=== PATIENT | female | born 1990 | race Caucasian/White ===

== ENCOUNTER 2020-06-14 10:21 | Inpatient (IN) ==
[2020-05-12 15:22] LABS: Appearance Urine Clear (Clear); Bilirubin Urine Negative (Negative); Blood Urine Negative (Negative); Color Urine Yellow; Glucose Urine UA Negative (Negative); Ketones Urine Negative (Negative); Leukocyte Esterase Urine Negative (Negative); Nitrite Urine Negative (Negative); Protein Urine Negative (Negative); Urobilinogen Urine Negative (Negative)
[2020-05-12 15:22] LABS: Basophils # (auto) 0.03 K/uL (0-0.2); Basophils % (auto) 0.3 %; Eosinophils # (auto) 0.12 K/uL (0-0.5); Eosinophils % (auto) 1.2 %; Hematocrit (blood only) 45.1 % (37-47); Hemoglobin 14.5 g/dL (12.0-16.0); Immature Granulocytes # (auto) 0.02 K/uL (0.00-0.02); Immature Granulocytes % (auto) 0.2 %; Lymphocytes # (auto) 3.19 K/uL (1.2-3.4); Lymphocytes % (auto) 31.8 %; Mean Corpuscular Hemoglobin 30.1 pg (25-34); Mean Corpuscular Hgb Conc 32.2 g/dL (32-36); Mean Corpuscular Volume 93.8 fL (80-100); Mean Platelet Volume 12.9 fL (7.4-10.4); Neutrophils # (auto) 5.98 K/uL (1.4-6.5); Neutrophils % (auto) 59.5 %; Platelet Count 244 K/uL (130-400); RDW Coefficient of Variation 13.6 % (11.5-14.5); RDW Standard Deviation 46.9 fL (36.4-46.3); Red Blood Count 4.81 M/uL (4.2-5.4); White Blood Count 10.04 K/uL (4.8-10.8)
[2020-05-12 15:30] LABS: BUN Creatinine Ratio 12.5 (10-20); Calcium 9.3 mg/dl (8.5-10.1); Creatinine Clr Calc Pharmacy 95.9 ml/min; Est GFR (African American) 98.1; Est GFR (Non-African American) 84.7; Potassium 3.9 mmol/L (3.5-5.1)
[2020-05-12 15:33] LABS: Partial Thromboplastin Time 29.1 Seconds (21.0-31.0); Prothrombin Time 10.2 Seconds (9.0-12.0)
--- NOTE | 2020-06-10 12:41 | Anesthesiology Consultation ---
Date of Service June 10, 2020 Assessment & Plan (1) Encounter for pre-operative examination: Chart Review Chart Review: Acceptable Risk for Surgery (pending updated travel assessment) and Patient NOT seen in Pre Admission Testing History Surgery Operation Date: 06/14/20 13:25 Proposed Procedures p L5-S1 Decompression and Fusion, Spinal Cord Monitoring - Arnel Espinosa, Height/Weight Height: 5 ft 4 in Weight: 86 kg Allergies Allergy/AdvReac Type Severity Reaction Status Date / Time cefaclor [From Ceclor] Allergy Unknown diffuse Verified 06/10/20 12:36 redness Medications Home Medications Medication Instructions Recorded Confirmed Last Taken hydrochlorothiazide 25 mg PO QAM 05/11/20 06/10/20 Unknown ibuprofen [Motrin IB] 600 mg PO Q6H PRN 05/11/20 06/10/20 Unknown multivitamin 1 tab PO QAM 05/11/20 06/10/20 Unknown polyethylene glycol 3350 [Miralax] 17 g PO DAILY PRN 05/11/20 06/10/20 Unknown Past Medical History Medical History Cardiac murmur heard as child, not heard as adult per patient Gastroparesis GERD (gastroesophageal reflux disease) Hypertension Migraine Neurogenic bladder disorder r/t back herniation during (10/2019)- has bladder stimulator (right lower back), has remote Viral hepatitis Dx'ed 2006- initially had mono and influenza- later dx'ed with viral hepatitis- LFTs elevated in the past- currently condition stable Past Family History Family History Grandfather Pancreatic cancer Past Surgical History Surgical History (Updated 06/10/20 @ 12:41 by Alicja Buchanan) H/O laparoscopy x4 (endometriosis) H/O rhinoplasty History of adenoidectomy History of anesthesia reaction low BP, low O2 sats, PONV, post-op panic attacks History of appendectomy History of bladder surgery multiple History of cholecystectomy History of esophagogastroduodenoscopy (EGD) History of hysterectomy History of tonsillectomy History of tooth extraction WTE Social History Smoking Status: Never smoker Hx Alcohol Use: Yes Alcohol type: beer and wine alcohol intake frequency: holidays/special occasions only Hx Substance Use: No Testing Laboratory Results 6/25/20 WBC 10.04 H/H 14.5/45.1 PLATELETS 244 SODIUM 139 POTASSIUM 3.9 CHLORIDE 107 CO2 27 BUN 11 CREATININE 0.91 GLUCOSE 95 PT 10.2 PTT 29.1 INR 1.0 UA negative TYPE AND SCREEN AB+ Ab- Electrocardiogram Date: 05/12/20 + NSR @ (93) Chest X-Ray Date: 05/12/20 + NAD There is a suspected calcified granuloma within the retrosternal chest on the lateral projection.
[~2020-06-14 10:21] MED LIST: ACETAMINOPHEN 500 MG TAB PO SCH; CEFAZOLIN 2000MG 2,000 MG/15 ML SYR IV SCH; CeleBREX 200 MG CAP PO SCH; GABAPENTIN 900 MG DOSE PO SCH; LR 15ML/HR IV SCH
[2020-06-14] MEDS ORDERED: fentaNYL citrate 100 MCG/2 ML VIAL ONE (11:41)
[2020-06-14] MEDS ORDERED: DEXAMETHASONE SOD INJ 4 MG/ML VIAL ONE ×2 (11:41)
[2020-06-14] MEDS ORDERED: ROCURONIUM BROMIDE 10 MG/ML 5 ML VIAL IV ONE ×6 (11:41→14:17)
[2020-06-14] MEDS ORDERED: PROPOFOL IV EMULSION 10 MG/ML 20 ML VIAL IV ONE (11:41)
[2020-06-14] MEDS ORDERED: LIDOCAINE HCL 2% 2 ML VIAL/AMP(20MG/ML) INFIL ONE (11:41)
[2020-06-14] MEDS ORDERED: MIDAZOLAM HCL 1 MG/ML 2ML VIAL ONE (11:41)
[2020-06-14] MEDS ORDERED: ONDANSETRON INJ 2 MG/ML 2 ML VIAL ONE (11:41)
--- NOTE | 2020-06-14 13:01 | History & Physical Bridge Note ---
Date of Service June 14, 2020 History & Physical Bridge Note I have examined the patient, reviewed the History & Physical and in the interval since the performance of the History & Physical I have noted the following changes of clinical significance: no changes noted
--- NOTE | 2020-06-14 13:02 | History & Physical Report ---
Date of Service June 14, 2020 Assessment & Plan (1) Neurogenic claudication due to lumbar spinal stenosis: L5-S1 decompression fusion Present on Admission?: Yes History of Present Illness Chief Complaint: Back and bilateral leg pain Primary Care Provider: ALBERT Schaefer This is a 29-year-old female who presents with chronic persistent back and bilateral leg pain. Failing since course of nonoperative care is here for surgical intervention. Allergies Allergy/AdvReac Type Severity Reaction Status Date / Time cefaclor [From Ceclor] Allergy Unknown diffuse Verified 06/14/20 10:57 redness Home Medications Home Medications Medication Instructions Recorded Confirmed Type hydrochlorothiazide 25 mg PO QAM 05/11/20 06/14/20 History ibuprofen [Motrin IB] 600 mg PO Q6H PRN 05/11/20 06/14/20 History multivitamin 1 tab PO QAM 05/11/20 06/14/20 History polyethylene glycol 3350 [Miralax] 17 g PO DAILY PRN 05/11/20 06/14/20 History Past Med/Surg History Family History Grandfather Pancreatic cancer Social History Smoking Status: Never smoker Second Hand Exposure: No; Do You Dip or Chew Tobacco: No; Tobacco Cessation Education Requested by Patient: No Hx Alcohol Use: Yes Alcohol type: beer and wine Hx Substance Use: No Preferred Language: Persian Communication Ability: Effective Wildlife Policy Professional Required: No Beliefs That Will Affect Care: None Current Living Situation: Family Other Information That Helps Us Care for You: No Feels Safe at Home: Yes Safety Concerns: Feels Safe At This Time Physical Exam Physical Exam: Patient is alert and oriented neurologically intact. Heart regular rate and rhythm. Lungs clear to auscultation. Results & Data Vital Signs (Past 12 Hours) Vital Signs Temp Pulse Resp BP Pulse Ox 06/14/20 11:02 36.8 C 84 18 130/93 97
[2020-06-14] MEDS ORDERED: DEXAMETHASONE SOD INJ 4 MG/ML VIAL IV PRN (13:22)
[2020-06-14] MEDS ORDERED: ONDANSETRON INJ 2 MG/ML 2 ML VIAL IV PRN ×2 (13:22→16:41)
[2020-06-14] MEDS ORDERED: METOCLOPRAMIDE HCL INJ 5 MG/ML 2 ML VIAL IV PRN ×2 (13:22→16:41)
[2020-06-14] MEDS ORDERED: HYDROmorphone INJ 2 MG/ML SYR/VIAL IV PRN (13:22)
[2020-06-14] MEDS ORDERED: PROMETHAZINE HCL 12.5 MG in SODIUM CHLORIDE 0.9% 50 ML IV PRN ×2 (13:22→16:41)
[2020-06-14] MEDS ORDERED: ATROPINE SULFATE 0.1 MG/ML 10ML SYR IV PRN (13:22)
[2020-06-14] MEDS ORDERED: ePHEDrine sulfate 50 MG/ML AMP IV PRN (13:22)
[2020-06-14] MEDS ORDERED: fentaNYL citrate 100 MCG/2 ML VIAL IV PRN (13:22)
[2020-06-14] MEDS ORDERED: BUPIVACAINE 0.5 % 5 MG/1 ML MPF 30ML VIAL ONE (13:27)
[2020-06-14] MEDS ORDERED: EPINEPHrine INJ 1 MG/ML AMP ONE (13:27)
[2020-06-14] MEDS ORDERED: BACITRACIN INJ 50,000 UNIT VIAL ONE (13:27)
[2020-06-14] MEDS ORDERED: HYDROmorphone INJ 2 MG/ML SYR/VIAL ONE (14:31)
[2020-06-14] MEDS ORDERED: FLOSEAL HEMOSTATIC MATRIX 10ML TOP ONE (15:06)
--- NOTE | 2020-06-14 15:09 | Operative Report ---
Post Operative Report Pre & Post Diagnosis Operation Date: 06/14/20 12:45 Pre-Op Diagnosis: Degenerative disc disease L5-S1 with neurogenic claudication Post-Op Diagnosis: Same I identified the patient and participated in the time-out.: Yes Procedure Operation Date: 06/14/20 12:45 Actual Procedures Lumbar decompression with bilateral medial facetectomies and foraminotomies L5- S1. #2 posterior spinal fusion L5-S1. #3 placement posterior instrumentation L5-S1 per #4 interbody fusion L5-S1. #5 placement of titanium 12 x 22 mm cage L5-S1 per #6 placement locally harvested morselized autograft in the posterior lateral gutters. #7 placement infuse collagen sponge, master graft in the posterior lateral gutters and ostial amp interbody space. Surgeon Arnel Espinosa, Boiler Reliner Emmanuelle Lewis Estimated Blood Loss 100 Findings See Below The patient is 5 foot 4 inches tall weighing over 85 kg with a BMI in excess of 32. Patient's body habitus did add significant technical difficulty requiring our deepest retractors and longus instruments in order to perform her procedure. This added at least 25% increase to the operative time. Specimens None Indications This is a 29-year-old female that presents with chronic back and bilateral leg pain. After failing extensive course of nonoperative care is here for surgical invention. Description of Procedure Patient was met with identified informed consent obtained. Patient was then taken to the operative suite underwent elevation placed in a prone position the [place] table top Mina frame. All bony prominences well-padded eyes inspected to ensure no external pressure placed upon the. This point the lumbar spine was prepped and draped in normal sterile fashion. Sharp dissection with the assistance of Bovie cautery was performed until exposing the lamina and transverse processes of L5 and sacral ala bilaterally. From caudal cephalad fashion complete laminectomy of L5 was performed including bilateral medial facetectomies and foraminotomies addressing all neural compression. Pedicle sc rews were then placed in L5 and S1 levels bilaterally with assistance of fluoroscopy and the properly sized leonie placed. By way to transfer approach on the right complete discectomy was performed endplates curetted to subcortical bleeding bone and a 12 x 22 mm titanium cage filled with osteo-bone graft tapped in position. The rods were then locked in final position bilaterally. The transverse processes of L5 and sacral ala burred to subcortical bleeding bone. Infuse collagen sponge master of autograft was then placed in the posterior lateral gutters. 15 round ZAC drain inserted. The incision was then closed with 1 Vicryl the fascia 2-0 Vicryl subcutaneously and 4 Monocryl for final skin closure. Steri-Strip sterile dressings placed. Patient waken taken PACU stable condition. Please note spinal cord monitoring was utilized that the procedure no changes noted. Lastly Emmanuelle Lewis was present at the entire procedure involved the patient positioning complex portions of the surgery and final skin closure. I attest to the content of the Intraoperative Record and any orders documented therein. Any exceptions are noted below.
[2020-06-14] MEDS ORDERED: NEOSTIGMINE METHYLSULFATE 1 MG/ML 10ML VIAL ONE (15:20)
[2020-06-14] MEDS ORDERED: GLYCOPYRROLATE 0.2 MG/ML VIAL ONE (15:20)
[2020-06-14] MEDS ORDERED: ESMOLOL HCL INJ 10 MG/ML 10ML VIAL IV ONE (15:23)
--- NOTE | 2020-06-14 15:23 | Fluoroscopy Report ---
FL lumbar spine 2-3V HISTORY: 29 years-old Female L4-S1 DECMPRESSION/FUSION/INTERBODY COMPARISON: Chest radiograph 05/12/2020 TECHNIQUE: 2 spot fluoroscopic images of the lumbar spine were obtained utilizing 21.0 seconds fluoro scopy time FINDINGS: Laminectomy with discectomy, posterior interbody leonie and screw fusion at L4-L5. Satisfactory alignmen t of the vertebral bodies. The hardware appears intact. There is a suggested fallopian tube occlusion device noted within the left hemipelvis. IMPRESSION: Fluoroscopic assistance as above. Please see operative report for further details. ACT 112: Negative or not required by law. The above report was generated using voice recognition software. It may contain grammatical, syntax o r spelling errors. Electronically signed by: Campos Santana M.D. 06/14/2020 3:21 PM
[2020-06-14] MEDS ORDERED: DO NOT ADMINISTER FLU VACCINE PRN (16:41)
[2020-06-14] MEDS ORDERED: ACETAMINOPHEN 1,000 MG/100 ML VIAL IV PRN (16:41)
[2020-06-14] MEDS ORDERED: LORazepam 0.5 MG/1 ML VIAL IV PRN (16:41)
[2020-06-14] MEDS ORDERED: HYDROmorphone INJ 0.5 MG/0.5 ML SYR IV PRN (16:41)
[2020-06-14] MEDS ORDERED: HYDROmorphone INJ 1 MG/ML SYRINGE IV PRN (16:41)
[2020-06-14] MEDS ORDERED: DO NOT ADMINISTER PNEUMOCOCCAL VACCINE PRN (16:41)
[2020-06-14] MEDS ORDERED: NALOXONE HCL 0.4 MG/1 ML VIAL/CARP IV PRN (16:41)
[2020-06-14] MEDS ORDERED: bisacodyL 10 MG SUPP PR PRN (16:41)
[2020-06-14] MEDS ORDERED: FAMOTIDINE 20 MG TAB PO PRN (16:41)
[2020-06-14] MEDS ORDERED: ALUMINUM/MAGNESIUM SUSP 30 ML UDC PO PRN (16:41)
[2020-06-14] MEDS ORDERED: SOD PHOSPHATE/SOD BIPHOSPHATE ENEMA 132 ML BTL PR PRN (16:41)
[2020-06-14] MEDS ORDERED: ONDANSETRON 4 MG OD TAB PO PRN (16:41)
[2020-06-14] MEDS ORDERED: MAGNESIUM HYDROXIDE SUSP 30 ML UDC PO PRN (16:41)
--- NOTE | 2020-06-14 16:48 | Anesthesiology Progress Note ---
Date of Service June 14, 2020 Anesthesia Post Procedure Vital Signs Vital Signs: Temp Pulse Pulse Resp BP Pulse Ox 06/14/20 16:40 36.6 C 12 117/77 98 06/14/20 16:25 79 12 125/72 99 06/14/20 16:15 78 12 122/72 98 06/14/20 16:05 36.8 C 71 12 125/79 96 06/14/20 15:55 93 H 14 127/74 99 06/14/20 15:45 89 13 123/77 100 06/14/20 15:35 96 H 14 118/79 100 06/14/20 15:29 36.2 C L 105 H 14 129/79 99 06/14/20 11:02 36.8 C 84 18 130/93 97 Pain Intensity Back: Pain Intensity: 4 Transfer of Care Handoff Completed per policy Notes Mental Status: alert / awake / arousable and participated in evaluation Patient Amnestic to Procedure: Yes Nausea / Vomiting: adequately controlled Pain: adequately controlled Airway Patency, RR, SpO2: stable & adequate BP & HR: stable & adequate Hydration State: stable & adequate Anesthetic Complications: no major complications apparent
[2020-06-14] MEDS: CLINDAMYCIN 600 MG in DEXTROSE 5% 50 ML IV SCH (18:01)
[2020-06-14] MEDS: KETOROLAC TROMETHAMINE 15 MG/ML VIAL IV SCH ×2 (18:46→23:20)
[2020-06-14] MEDS ORDERED: SODIUM CHLORIDE 0.9% 1000ML 1,000 ML IV SCH (20:15)
[2020-06-14] MEDS ORDERED: Nursing to Pharmacy Communication SCH ×2 (20:15→20:30)
[2020-06-14] MEDS ORDERED: LACTATED RINGER'S 1,000 ML IV ONE (20:30)
[2020-06-14] MEDS: OXYCODONE HCL IR 5 MG TAB (IMMEDIATE RELEASE) PO PRN (20:34)
[2020-06-14] MEDS: LACTATED RINGER'S 1,000 ML IV SCH (21:35)
[2020-06-14] MEDS: DOCUSATE SODIUM/SENNA 50/8.6MG TAB PO SCH (21:56)
[2020-06-14] MEDS: ACETAMINOPHEN 500 MG TAB PO PRN (23:30)
[2020-06-15] MEDS: CLINDAMYCIN 600 MG in DEXTROSE 5% 50 ML IV SCH (02:49)
[2020-06-15] MEDS: OXYCODONE HCL IR 5 MG TAB (IMMEDIATE RELEASE) PO PRN ×4 (02:54→19:09)
[2020-06-15] MEDS: KETOROLAC TROMETHAMINE 15 MG/ML VIAL IV SCH ×2 (05:42→11:07)
[2020-06-15] MEDS: POLYETHYLENE (MIRALAX) 17 GM PACK PO SCH ×4 (05:42→23:33)
[2020-06-15 06:22] LABS: Basophils # (auto) 0.01 K/uL (0-0.2); Basophils % (auto) 0.1 %; Eosinophils # (auto) 0.01 K/uL (0-0.5); Eosinophils % (auto) 0.1 %; Hematocrit (blood only) 38.1 % (37-47); Hemoglobin 12.1 g/dL (12.0-16.0); Immature Granulocytes # (auto) 0.03 K/uL (0.00-0.02); Immature Granulocytes % (auto) 0.2 %; Lymphocytes # (auto) 1.55 K/uL (1.2-3.4); Lymphocytes % (auto) 10.4 %; Mean Corpuscular Hemoglobin 28.9 pg (25-34); Mean Corpuscular Hgb Conc 31.8 g/dL (32-36); Mean Corpuscular Volume 91.1 fL (80-100); Mean Platelet Volume 11.8 fL (7.4-10.4); Monocytes # (auto) 0.86 K/uL (0.11-0.59); Monocytes % (auto) 5.8 %; Neutrophils # (auto) 12.49 K/uL (1.4-6.5); Neutrophils % (auto) 83.4 %; Platelet Count 183 K/uL (130-400); RDW Coefficient of Variation 13.2 % (11.5-14.5); RDW Standard Deviation 43.9 fL (36.4-46.3); Red Blood Count 4.18 M/uL (4.2-5.4); White Blood Count 14.95 K/uL (4.8-10.8)
[2020-06-15 06:53] LABS: Calcium 8.6 mg/dl (8.5-10.1); Creatinine Clr Calc Pharmacy 122.7 ml/min; Est GFR (African American) 132.5; Est GFR (Non-African American) 114.3; Potassium 3.9 mmol/L (3.5-5.1)
[2020-06-15] MEDS: MULTIVITAMIN TAB PO SCH (08:34)
[2020-06-15] MEDS: hydroCHLOROthiazide 25 MG TAB PO SCH (08:34)
[2020-06-15] MEDS: LACTATED RINGER'S 1,000 ML IV SCH (08:38)
--- NOTE | 2020-06-15 11:11 | Orthopedic Progress Note ---
Date of Service June 15, 2020 Assessment & Plan (1) Neurogenic claudication due to lumbar spinal stenosis: At this time continue physical therapy monitor his ZAC output anticipate discharge home in the next few days. Present on Admission?: Yes Admission and Anticipated Discharge Date Admission Date: June 14, 2020 Subjective Back pain controlled leg symptoms improved Physical Exam Physical Exam: Patient is good strength testing peers comfortable. Results & Data ([facility]) Vital Signs (Past 12 Hours) Vital Signs Temp Pulse Pulse Resp BP BP Pulse Ox 06/15/20 07:43 36.5 C 74 16 107/69 100 06/15/20 05:46 88 18 114/71 97 06/15/20 02:51 37.2 C 98 H 18 100/61 95 06/14/20 23:26 37.9 C H 100 H 16 116/68 95
[2020-06-15] MEDS: ACETAMINOPHEN 500 MG TAB PO PRN ×2 (11:47→23:33)
[2020-06-15] MEDS: DOCUSATE SODIUM/SENNA 50/8.6MG TAB PO SCH (21:17)
[2020-06-15] MEDS: LORazepam 0.5 MG TAB PO PRN (21:45)
[2020-06-16] MEDS: POLYETHYLENE (MIRALAX) 17 GM PACK PO SCH ×3 (06:01→18:30)
[2020-06-16] MEDS: OXYCODONE HCL IR 5 MG TAB (IMMEDIATE RELEASE) PO PRN (06:04)
[2020-06-16] MEDS: MULTIVITAMIN TAB PO SCH (07:28)
[2020-06-16] MEDS: hydroCHLOROthiazide 25 MG TAB PO SCH (07:28)
--- NOTE | 2020-06-16 08:18 | Orthopedic Progress Note ---
Date of Service June 16, 2020 Assessment & Plan (1) Neurogenic claudication due to lumbar spinal stenosis: This time we will continue physical therapy monitor her ZAC output anticipate possible discharge home tomorrow. Present on Admission?: Yes Admission and Anticipated Discharge Date Admission Date: June 14, 2020 Subjective Back pain is controlled leg symptoms improved. Physical Exam Physical Exam: Patient is in the chair at the bedside. Is good strength testing. Results & Data ([facility]) Vital Signs (Past 12 Hours) Vital Signs Temp Pulse Resp BP Pulse Ox 06/16/20 06:50 36.6 C 92 H 18 108/73 99 06/15/20 23:36 36.7 C 89 16 116/73 96
[2020-06-16] MEDS: DEXAMETHASONE SOD PHOSPHATE 8 MG in SYRINGE 0 ML IV SCH (08:26)
[2020-06-16] MEDS: ACETAMINOPHEN 500 MG TAB PO PRN (13:08)
[2020-06-16] MEDS: TRAMADOL HCL 50 MG TABLET PO PRN (16:52)
[2020-06-16] MEDS: DOCUSATE SODIUM/SENNA 50/8.6MG TAB PO SCH (20:13)
[2020-06-16] MEDS: LORazepam 0.5 MG TAB PO PRN (22:20)
[2020-06-17] MEDS: POLYETHYLENE (MIRALAX) 17 GM PACK PO SCH ×2 (00:13→06:17)
[2020-06-17] MEDS: ACETAMINOPHEN 500 MG TAB PO PRN ×2 (06:07→21:33)
[2020-06-17] MEDS: TRAMADOL HCL 50 MG TABLET PO PRN ×2 (07:48→15:50)
[2020-06-17] MEDS: LORazepam 0.5 MG TAB PO PRN ×2 (08:23→20:20)
[2020-06-17] MEDS: DEXAMETHASONE SOD PHOSPHATE 8 MG in SYRINGE 0 ML IV SCH (09:04)
[2020-06-17] MEDS: hydroCHLOROthiazide 25 MG TAB PO SCH ×2 (09:10→18:04)
[2020-06-17] MEDS: MULTIVITAMIN TAB PO SCH ×2 (09:10→18:05)
--- NOTE | 2020-06-17 12:16 | Orthopedic Progress Note ---
Date of Service June 17, 2020 Assessment & Plan (1) Neurogenic claudication due to lumbar spinal stenosis: At this time she appears to have a spontaneous CSF leak. We will discontinue the drain. I will maintain strict bedrest for the next 24 to 48 hours. This was explained to the patient and her mother. Present on Admission?: Yes Admission and Anticipated Discharge Date Admission Date: June 14, 2020 Subjective Patient was doing very well. Unfortunately this morning when she was up in the bathroom she had immediate onset of headache. She is had resolution of her symptoms when lying back in bed. She denies any significant back pain she denies any leg pain. Physical Exam Physical Exam: On exam she is lying flat in bed she is significant clear fluid in her drain. She has excellent strength testing. Results & Data ([facility]) Vital Signs (Past 12 Hours) Vital Signs Temp Pulse Pulse Resp BP BP Pulse Ox 06/17/20 08:40 67 120/70 06/17/20 06:37 88 20 125/85 122/83 98 06/17/20 06:20 36.8 C 90 16 104/69 99
[2020-06-17] MEDS: SODIUM CHLORIDE 0.9% 1000ML 1,000 ML IV SCH ×2 (14:10→23:53)
[2020-06-17] MEDS: DOCUSATE SODIUM/SENNA 50/8.6MG TAB PO SCH (21:34)
[2020-06-17] MEDS: OXYCODONE HCL IR 5 MG TAB (IMMEDIATE RELEASE) PO PRN (21:34)
[2020-06-18] MEDS: TRAMADOL HCL 50 MG TABLET PO PRN ×3 (07:49→21:13)
--- NOTE | 2020-06-18 08:08 | Orthopedic Progress Note ---
Date of Service June 18, 2020 Assessment & Plan (1) Radicular pain of both lower extremities: Patient is stable postop day 4 with a spontaneous spinal fluid leak. We will keep her down for approximately 48 hours. She needs to remain on DVT prophylaxis we will keep her maintenance IV in place as well as her [place] as well. She is to have strict pain control regimen as well. We will see how she is doing tomorrow morning. Admission and Anticipated Discharge Date Admission Date: June 14, 2020 Subjective Patient was seen bedside in room 319. She is lying in bed head of bed flat. She states that she has not had any increase in headache. She does have soreness in her back from lying flat. She denies any nausea. She is tolerating p.o. She has no other complaints. Physical Exam Physical Exam: On exam she is alert and oriented. Her dressing is clean dry and intact. There is no fluid wave. Her calves are supple nontender. Strength and sensation are grossly intact. Results & Data ([facility]) Vital Signs (Past 12 Hours) Vital Signs Temp Pulse Resp BP BP Pulse Ox 06/18/20 07:02 36.8 C 79 16 108/69 98 06/17/20 23:11 36.7 C 80 14 115/66 96
[2020-06-18] MEDS: DEXAMETHASONE SOD PHOSPHATE 8 MG in SYRINGE 0 ML IV SCH (08:47)
[2020-06-18] MEDS: MULTIVITAMIN TAB PO SCH (08:48)
[2020-06-18] MEDS: hydroCHLOROthiazide 25 MG TAB PO SCH (08:48)
[2020-06-18] MEDS: SODIUM CHLORIDE 0.9% 1000ML 1,000 ML IV SCH ×2 (10:07→20:15)
[2020-06-18] MEDS: LORazepam 0.5 MG TAB PO PRN (20:19)
[2020-06-18] MEDS: DOCUSATE SODIUM/SENNA 50/8.6MG TAB PO SCH (20:19)
[2020-06-19] MEDS: TRAMADOL HCL 50 MG TABLET PO PRN ×3 (06:27→20:15)
[2020-06-19] MEDS: SODIUM CHLORIDE 0.9% 1000ML 1,000 ML IV SCH ×2 (06:28→16:19)
--- NOTE | 2020-06-19 07:30 | Orthopedic Progress Note ---
Date of Service June 19, 2020 Assessment & Plan (1) Radicular pain of both lower extremities: Patient is doing well postop day #5 with a spontaneous spinal fluid leak. She did not have any evidence of headache when she stood up last night to use the bedside commode. We will keep her down today and see how she is doing tomorrow morning. Anticipate being able to get her to a chair tomorrow and shower. Anticipate discharge date would be Saturday. Admission and Anticipated Discharge Date Admission Date: June 14, 2020 Subjective Patient was seen bedside this morning in room 319. Overall she is doing well. She has been had a bed flat for 24 hours. She get up yesterday to use the bedside commode she did not have a headache during that process. The back pain is getting better. She has no pain going down her legs. She denies any other numbness, tingling, paresthesias. Physical Exam Physical Exam: On exam she is alert and oriented. Her dressing is clean dry and intact. Her calves are supple nontender. Strength and sensation both intact. Results & Data ([facility]) Vital Signs (Past 12 Hours) Vital Signs Temp Pulse Resp BP Pulse Ox 06/18/20 23:42 36.7 C 75 16 113/73 97
[2020-06-19] MEDS: DEXAMETHASONE SOD PHOSPHATE 8 MG in SYRINGE 0 ML IV SCH (08:43)
[2020-06-19] MEDS: hydroCHLOROthiazide 25 MG TAB PO SCH (08:43)
[2020-06-19] MEDS: MULTIVITAMIN TAB PO SCH (08:43)
[2020-06-19] MEDS: DOCUSATE SODIUM/SENNA 50/8.6MG TAB PO SCH (20:15)
[2020-06-19] MEDS: LORazepam 0.5 MG TAB PO PRN (21:21)
[2020-06-20] MEDS: SODIUM CHLORIDE 0.9% 1000ML 1,000 ML IV SCH ×2 (02:04→12:09)
[2020-06-20] MEDS: DEXAMETHASONE SOD PHOSPHATE 8 MG in SYRINGE 0 ML IV SCH (08:34)
[2020-06-20] MEDS: hydroCHLOROthiazide 25 MG TAB PO SCH (08:34)
[2020-06-20] MEDS: MULTIVITAMIN TAB PO SCH (08:35)
[2020-06-20] MEDS: ACETAMINOPHEN 500 MG TAB PO PRN (08:37)
[2020-06-20] MEDS: OXYCODONE HCL IR 5 MG TAB (IMMEDIATE RELEASE) PO PRN ×2 (09:42→17:25)
--- NOTE | 2020-06-20 11:20 | Orthopedic Progress Note ---
Date of Service June 20, 2020 Assessment & Plan (1) Neurogenic claudication due to lumbar spinal stenosis: At this time we will continue bed to chair ambulating in the room only today. She may shower today. We will advance her activity tomorrow. She if she is able to tolerate ambulation without issue tomorrow we may discharge home. Present on Admission?: Yes Admission and Anticipated Discharge Date Admission Date: June 14, 2020 Subjective Patient has been up to a chair this morning. She has been ambulating around the room. She denies any headaches. She is having no leg pain reasonable back pain. Physical Exam Physical Exam: On exam she is good strength testing appears comfortable. Results & Data ([facility]) Vital Signs (Past 12 Hours) Vital Signs Temp Pulse Resp BP Pulse Ox 06/20/20 07:32 36.6 C 77 18 108/72 100
[2020-06-20] MEDS: TRAMADOL HCL 50 MG TABLET PO PRN ×2 (14:47→21:03)
[2020-06-20] MEDS: DOCUSATE SODIUM/SENNA 50/8.6MG TAB PO SCH (21:06)
[2020-06-21] MEDS: OXYCODONE HCL IR 5 MG TAB (IMMEDIATE RELEASE) PO PRN ×2 (00:04→12:41)
[2020-06-21] MEDS: LORazepam 0.5 MG TAB PO PRN (00:04)
[2020-06-21] MEDS: TRAMADOL HCL 50 MG TABLET PO PRN (07:37)
--- NOTE | 2020-06-21 08:27 | Discharge Summary ---
Date of Service June 21, 2020 Admission HPI Per Admitting Provider This is a 29-year-old female who presents with chronic persistent back and bilateral leg pain. Failing since course of nonoperative care is here for surgical intervention. Principal Diagnosis Lumbar spinal stenosis with neurogenic claudication Discharge Data Allergies Allergy/AdvReac Type Severity Reaction Status Date / Time cefaclor [From Ceclor] Allergy Unknown diffuse Verified 06/14/20 10:57 redness Consultations 06/14/20 16:41 Consult Case Management - Discharge Planning Routine Procedures Performed Operation Date: 06/14/20 12:45 Actual Procedures p L5-S1 Decompression and Fusion, Spinal Cord Monitoring, Application of Infuse BMP(Not Applicable) - Arnel Espinosa DO Ordered Studies 06/14/20 12:45 FL fluoroscopy <1hr Routine [place] lumbar spine 2-3V Routine Hospital Course (1) Neurogenic claudication due to lumbar spinal stenosis: Patient with lumbar decompression fusion tolerated this well was taken to orthopedic floor possibly. Postop day 1 she was up and ambulating progressed to postop day #2. Unfortunately postop day #3 she had a spontaneous CSF leak. The drain was removed and she was placed on bedrest for 2 days. She tolerates well and is up and ambulating Saturday. She continued progressive Saturday without headaches nausea or vomiting. Pain well controlled. Excellent strength testing. Subsequent discharge home. Discharge orders instructions from the chart for further review. Total Time Total Time Spent Total Time Spent (In Minutes): 20 minutes Discharge Plan Discharge Items Patient Disposition: Home - Self-Care Reason For Visit: LUMBAR SPINAL STENOSIS WO NEUROGENIC CLAUDICATION Discharge Diagnosis: Lumbar spinal stenosis with radiculopathy Activity: As commented below Non-emergency contact: Primary Care Provider Call non-emergency contact if: you have any medication questions Follow-up/Referrals: Agnes Sim CRNP [Primary Care Provider] - Diet: Regular Addtl Attending Provider Instructions: ACTIVITY RECOMMENDATIONS: SELF CARE INSTRUCTIONS AFTER THORACIC/LUMBAR FUSIONS 1. You may walk to your tolerance. It is good exercise for your legs and back. Expect some back and intermittent leg aches and pains. 2. You may perform "counter-top" level activities (make a sandwich, tha with a project, etc.). 3. No bending or lifting of more than 10 pounds or back twisting of any nature (roll like a log when turning in bed). 4. You may ride in a car for 20-30 minutes at a time. No driving until after your first visit with your doctor. 5. Frequent changes of position and restricting sitting to 30 minutes at a time will help limit the amount of back spasms and stiffness you may experience. 6. You may discontinue the use of ambulatory aids (cane, crutches, etc.) once your strength and confidence allow. 7. You may store standards associate the shower and let water strike your incision when you arrive home at least once daily. Do not take a tub bath, sit in a hot tub or go into a swimming pool until after your first recheck in the office. SPECIAL CARE INSTRUCTIONS: VERY IMPORTANT TO READ AND REVIEW A. Your surgical incision has been closed with a cosmetic suture under the skin that will dissolve in about 6 weeks. In 14 days, you can use a pair of clean scissors and cut the suture that is left outside of the skin at the ends of your incision. 1. The small skin tapes can be removed 7 days after surgery if they have not fallen off by that point. 2. You may keep the wound open to air as much as possible to promote healing after post-op day number 5 unless told otherwise by your doctor. 3. If you think the wound looks like it is becoming infected (redness or worsening drainage) and/or you are experiencing fever, chill or worsening back pain and muscle spasms, contact the office so that we may evaluate you as soon as possible. B. Complications are uncommon, but please contact us if you have any signs or symptoms of: 1. wound infection (fever higher than 102.5 degrees F, redness, separation of wound, drainage, or increasing pain from the incision) 2. blood clots in legs (pain, swelling, redness and warmth in legs) 3. urinary tract infection (fever higher than 102.5 degrees F, burning upon urination or increased frequency of urination) 4. nerve problems (inability to walk on your toes or heels, numbness, loss of bowel or bladder control) 5. any other symptoms that concern you C. Please call the office at if you have any concerns or questions about your operation or recovery. D. No smoking! Smoking drastically decreases the chance of a solid fusion. E. Do not take any anti-inflammatory medications (Indocin, Advil, Motrin, Aspir in, Naprosyn, etc.) as these may inhibit the chance of a solid fusion. Tylenol is okay to take for pain. MANAGING PAIN AFTER SPINAL SURGERY 1. Narcotic medication is intended for short-term use and will be provided for surgical pain. Surgical pain usually lasts for a period of 4-6 weeks. Narcotic medication includes Percocet, Vicodin, Darvocet, Tylenol #3 or Lortab. 2. Longer-term pain is more appropriately treated with non-narcotic medication such as Tylenol ES. 3. Muscle spasm is not appropriately treated with narcotics. Muscle relaxers such as Soma, Flexeril or Skelaxin can be used along with Tylenol ES. 4. Remember that we all live with some "aches and pains". This is not unusual or uncommon after an injury or as we get older. a. Back pain is expected and may include muscle spasms for 4 to 6 weeks after surgery. The pain should gradually improve. If the pain worsens for no apparent reason, please contact the office. b. Intermittent leg pain may also be experienced and should not be concerned about unless it worsens for no apparent reason. If so, please contact the office. 5. We will provide appropriate medication within the normal guidelines of their prescribed use. We will also be very cautious and aware of potential abuse and extended duration of patients' medication needs. a. Pain medications are for your comfort and to assist with sleep and rest so that the tissue can heal. They are not provided in order to return to normal activity and should not be used through the day. To do so or worsening pain at night can result from ongoing tissue damage and development of tolerance to the prescribed medicine. 6. Please allow 2-3 days to process refills. Prescriptions will not be mailed but must be picked up at the office. FOLLOW UP VISIT: Keep your scheduled follow-up appointment. Any questions, please call the office at . Pending Studies at Discharge: No Stand-Alone Forms: My [employer], Smoking Cessation Medications and DC Order Prescriptions: New tramadol 50 mg tablet 50 mg PO Q6H PRN (Reason: pain, moderate) Qty: 20 RF: 0 oxycodone 5 mg tablet 5 mg PO Q6H PRN (Reason: pain, severe) Qty: 20 RF: 0 Continued multivitamin Tablet 1 tab PO QAM RF: 0 hydrochlorothiazide 12.5 mg Capsule 25 mg PO QAM RF: 0 polyethylene glycol 3350 [Miralax] 17 gram/dose Powder 17 g PO DAILY PRN (Reason: Constipation) RF: 0 Discontinued ibuprofen [Motrin IB] 200 mg Capsule 600 mg PO Q6H PRN (Reason: Pain) RF: 0 Discharge Orders: Discharge Order (Routine); Ordered 06/21/20 Ordered By: Arnel Espinosa Admission Data Admit Date/Time: 06/14/20 15:40 Attending Provider: Arnel Espinosa Admit Provider: Arnel Espinosa Primary Care Provider: Agnes Sim
[2020-06-21] MEDS: DEXAMETHASONE SOD PHOSPHATE 8 MG in SYRINGE 0 ML IV SCH (08:35)
[2020-06-21] MEDS: MULTIVITAMIN TAB PO SCH (08:35)
[2020-06-21] MEDS: hydroCHLOROthiazide 25 MG TAB PO SCH (08:35)
--- NOTE | 2020-07-01 11:24 | Coding Query ---
CODING QUERY To promote full compliance with coding requirements relating to patient care, provider participation is requested in all cases of disability representative uncertainty. Please assist us with the question(s) below: Coding Question(s): Please specify below, in your clinical opinion, regarding Spontaneous CSF Leak. (x ) Spontaneous CSF Leak is a Postoperative Complication ( ) Spontaneous CSF Leak Not a Postoperative Complication ( ) Other: Please Specify Physician's Response(s): Thank you Cris James Principal Diagnosis: "that condition established after study, to be chiefly responsible for occasioning the admission of the patient to the hospital for care." Co-Existing Principal Diagnosis: "when two or more diagnoses equally meet the criteria for principal diagnosis as determined by the circumstances of admission, diagnostic work up, and/or therapy provided, and the Alphabetic Index, Tabular List, or another coding guideline does not provide sequencing direction, any one of the diagnoses may be sequenced first." "When the physician has documented what appears to be a current diagnosis in the body of the record, but has not included the diagnosis in the final diagnostic statement, the physician should be asked whether the diagnosis should be added." (Source [facility] 2 QTR90. p3-4) JACQUELINE
== END 2020-06-21 14:18 | disposition home or self-care (01) | DRG 454 ==
LOC: ASU 10:21 → 3E 15:40